=== PATIENT | male | born 1955 | race Caucasian/White ===

== ENCOUNTER 2016-04-13 12:55 | Emergency (ER) | payer OTHER ==
[2016-04-13] MEDS ORDERED: IBUPROFEN 800 MG TABLET ONE (14:29)
[2016-04-13] MEDS ORDERED: HYDROCODONE/ACETAMINOPHEN 5/325MG TABLET ONE (14:29)
== END 2016-04-13 14:45 | disposition home or self-care (01) ==
LOC: ED 12:55
DX: L72.3 Sebaceous cyst (principal)